=== PATIENT | male | born 1995 | race Caucasian/White ===

== ENCOUNTER 2024-10-19 10:20 | Outpatient (CLI) | payer MEDICAID, SELFPAY ==
[2024-10-19 16:33] LABS: Basophils # 0.1 K/mm3 (0-0.2); Basophils % 1.1 % (0.1-2.0); Eosinophils # 0.3 K/mm3 (0.0-0.4); Eosinophils % 3.9 % (0.1-12.0); Hematocrit 45.5 % (42.0-52.0); Hemoglobin 15.2 g/dL (14.1-18.0); Lymphocytes # 2.9 K/mm3 (0.7-4.5); Lymphocytes % 39.9 % (10-50); Mean Corpuscular HGB Conc 33.4 g/dL (31.8-35.4); Mean Corpuscular Hemoglobin 26.5 pg (27.0-31.2); Mean Corpuscular Volume 79.3 fl (80-94); Mean Platelet Volume 10.1 fl (7.4-10.4); Monocytes # 0.6 K/mm3 (0.1-1.0); Monocytes % 8.7 % (1.7-9.3); Neutrophils # 3.4 K/mm3 (1.8-7.8); Neutrophils % 46.3 % (37.0-80.0); Platelet Count 238 K/mm3 (142-424); Red Blood Count 5.74 M/mm3 (4.60-6.20); White Blood Count 7.3 K/mm3 (4.8-10.8)
[2024-10-19 17:59] LABS: 25-OH Vitamin D, Total 22.3 ng/mL (30-100)
[2024-10-19 18:09] LABS: Hepatitis C Ab Qual. W/ RFX NEGATIVE (Negative)
[2024-10-19 19:42] LABS: HIV Combo NEGATIVE (Negative)
[2024-10-19 19:48] LABS: Albumin Level 4.5 g/dl (3.5-5.0)
[2024-10-19 19:49] LABS: Chloride 105 mmol/L (98-107); Potassium 4.2 mmoL/L (3.5-5.1); Sodium 136 mmol/L (136-145)
[2024-10-19 19:51] LABS: Alanine Aminotransferase 61 U/L (12-78); Albumin/Globulin Ratio 1.8 (1.1-1.8); Alkaline Phosphatase 76 U/L (38-126); Anion Gap 10.2 mEq/L (5-15); Aspartate Amino Transferase 34 U/L (17-59); Bilirubin,Total 0.6 mg/dl (0.2-1.3); Blood Urea Nitrogen 18 mg/dl (9-20); Carbon Dioxide 25 mmol/L (22.0-30.0); Estimated Glomerular Filt Rate 114 ml/min (>60); GFR (African American) 137 ML/MIN (>60); Globulin 2.5 g/dL (1.3-3.2)
[2024-10-19 19:52] LABS: Calcium 9.5 mg/dl (8.4-10.2); Chol/HDL Ratio 4.7 (1-3.5); Cholesterol 168 mg/dl (140-200); Glucose 85 mg/dl (74-100); HDL Cholesterol 36 mg/dl (40-60); Triglycerides 100 mg/dl (30-150); VLDL Cholesterol 20 mg/dL (0-40)
[2024-10-19 20:03] LABS: Direct LDL Cholesterol 109.52 mg/dL (100-129)
[2024-10-19 20:09] LABS: T4 (Thyroxine) 8.6 ug/dl (5.53-11.0)
[2024-10-19 20:23] LABS: Thyroid Stimulating Hormone 2.13 uIU/mL (0.465-4.68)
== END 2024-10-19 23:59 | disposition home or self-care (01) ==
LOC: LAB.DROPOF 10-20 10:29
PROVIDERS: PCP Nurse Practitioner Family; Visit Provider Nurse Practitioner Family
DX: Z02.1 Encounter for pre-employment examination (principal); R53.83 Other fatigue; Z11.59 Encounter for screening for other viral diseases; Z11.4 Encounter for screening for human immunodeficiency virus [HIV]
CPT/HCPCS: 80053; 80061; 82306; 84436; 84443; 85025; 86803; 87389